=== PATIENT | male | born 1995 ===

== ENCOUNTER 2016-06-15 04:34 | Emergency (ER) | payer SELFPAY ==
[2016-06-15] MEDS ORDERED: IBUPROFEN 800 MG TABLET ONE (05:40)
[2016-06-15] MEDS ORDERED: DIPHENHYDRAMINE HCL 50 MG CAPSULE ONE (05:40)
[2016-06-15] MEDS ORDERED: ONDANSETRON 4 MG ODT TAB ONE (05:41)
== END 2016-06-15 05:54 | disposition home or self-care (01) ==
LOC: ED 04:34
DX: H66.91 Otitis media, unspecified, right ear (principal)
CPT/HCPCS: 99283 ×2; A9270 ×3